=== PATIENT | male | born 1975 ===

== ENCOUNTER 2021-12-14 02:05 | Emergency (ER) | payer OTHER ==
[2021-12-14] MEDS ORDERED: Ketorolac Tromethamine 30 MG/ML VIAL ONE (02:40)
[2021-12-14] MEDS ORDERED: Cyclobenzaprine 10 MG TAB ONE (02:41)
== END 2021-12-14 04:46 ==
LOC: CSHERS 02:05
DX: M54.2 Cervicalgia (principal); E11.9 Type 2 diabetes mellitus without complications; Z79.4 Long term (current) use of insulin; I10 Essential (primary) hypertension
CPT/HCPCS: 72125; 96372; J1885